=== PATIENT | male | born 1945 | race Two or more races ===

== ENCOUNTER 2019-09-22 07:25 | Inpatient (IN) | payer MEDICARE, BC ==
[~2019-09-22] VITALS: Ht 167.6 cm; Wt 72.1 kg
--- NOTE | 2019-09-22 07:29 | NUR ---
VSS STABLE , AFEBRILE , ATTACHED TO MONITOR , WILL CONTINUE TO MONITOR
--- NOTE | 2019-09-22 07:30 | NUR ---
GABO FROM HOME WITH CC OF altered mental status , BS OF 27 , SEEN AND EVALUATED BY DR CHOUDHARY , WILL CONTINUE TO MONITOR
[2019-09-22] MEDS ORDERED: DEXTROSE 50%-WATER 50 ML DISP.SYRIN ONE (07:34)
--- NOTE | 2019-09-22 07:51 | NUR ---
BS OF 273 POST D50 , PT MORE AWAKE ALERT X2-3 WILL CONTINUE TO MONITOR Addendum: 09/22/19 at 0752 by UCHE 274 MG/DL , NOTIFIED
[2019-09-22 07:55] LABS: BASOPHILS # (AUTO) 0.1 /CMM (0.0-0.2); BASOPHILS % (AUTO) 0.3 % (0.0-2.0); EOSINOPHILS % (AUTO) 0.5 % (0.0-6.0); HEMATOCRIT 32 % (39-51); LYMPHOCYTES # (AUTO) 0.9 /CMM (0.8-4.8); LYMPHOCYTES % (AUTO) 5.9 % (20.0-44.0); MEAN CORPUSCULAR HGB CONC 31 g/dl (31.0-36.0); MEAN CORPUSCULAR VOLUME 90 fL (80-96); MONOCYTES # (AUTO) 0.9 /CMM (0.1-1.30); MONOCYTES % (AUTO) 5.4 % (2.0-12.0); NEUTROPHILS # (AUTO) 13.9 /CMM (1.8-8.9); NEUTROPHILS % (AUTO) 87.9 % (43.0-81.0); PLATELET COUNT (AUTO) 487 /CMM (150-450); WHITE BLOOD COUNT (AUTO) 15.8 K/uL (4.3-11.0)
[2019-09-22] MEDS ORDERED: DEXTROSE 50%-WATER 50 ML DISP.SYRIN IVP ONE (08:00)
[2019-09-22 08:08] LABS: CARBON DIOXIDE 14 mmol/L (21-32); CHLORIDE 96 mmol/L (98-107); CREATININE 6.1 mg/dL (0.6-1.3); GLUCOSE 291 mg/dL (74-106); POTASSIUM 3.5 mmol/L (3.5-5.1); SODIUM SERUM 133 mmol/L (136-145)
[2019-09-22 08:12] LABS: CALCIUM, SERUM 8.4 mg/dL (8.5-10.1); UREA NITROGEN, BLOOD 197 mg/dL (7-18)
--- NOTE | 2019-09-22 08:15 | NUR ---
I AND O DONE ,URINE COLLECTED NOTE WITH 200ML CLEAR YELLOW URINE TRANSFERRED PT TO CT OF THE HEAD , PT STABLE
[2019-09-22 08:20] LABS: APPEARANCE,URINE CLOUDY (CLEAR); BILIRUBIN,URINE Negative (NEGATIVE); BLOOD, URINE Large Ery/uL (NEGATIVE); COLOR,URINE Yellow (YELLOW); KETONES,URINE Negative (NEGATIVE); LEUKOCYTE ESTERASE ,URINE Small (NEGATIVE); NITRITE, URINE Negative (NEGATIVE); PH,URINE 5.5 (5.0-8.0); PROTEIN,URINE 30 mg/dl (NEGATIVE); UGLUCOSE Negative (NEGATIVE); UROBILINOGEN,URINE 0.2 EU/dL (0.2)
[2019-09-22 08:23] LABS: RBC,URINE 15-20 /HPF (0-2)
[2019-09-22 08:25] LABS: BACTERIA,URINE Few /HPF (None Seen); SQUAMOUS EPITHELIAL CELL,UR Moderate /HPF (None Seen); WBC,URINE 30-50 /HPF (0-3)
--- NOTE | 2019-09-22 08:29 | NUR ---
CALLED DR VOSS. SPEAKING TO ED MD
[2019-09-22] MEDS ORDERED: FURO40TA5 PO (08:30)
[2019-09-22] MEDS ORDERED: PRAM1TAB7 PO (08:30)
[2019-09-22] MEDS ORDERED: ROSU20TA32 PO (08:30)
[2019-09-22] MEDS ORDERED: APIX2.5T PO (08:30)
[2019-09-22] MEDS ORDERED: METH1TAB30 PO (08:30)
[2019-09-22] MEDS ORDERED: IV NS 0.9% 1,000 ML IV ONE (08:30)
[2019-09-22] MEDS ORDERED: INSU100I4 SQ (08:30)
[2019-09-22] MEDS ORDERED: CLON1TAB12 MT (08:30)
[2019-09-22] MEDS ORDERED: CEFTRIAXONE 1 G in IV D5W 50 ML IV STA (08:30)
[2019-09-22] MEDS ORDERED: ALLO100T PO (08:30)
[2019-09-22] MEDS ORDERED: INSU100I30 (08:30)
[2019-09-22] MEDS ORDERED: DUTA0.5C16 PO (08:30)
[2019-09-22] MEDS ORDERED: METO-357 PO (08:30)
[2019-09-22] MEDS ORDERED: ERGO500014 PO (08:30)
--- NOTE | 2019-09-22 08:30 | NUR ---
CALLED NURSING [facility] ON RAILS CONSULTANT FOR BED CALLED DR VOSS FOR ADMISSION ,
[2019-09-22] MEDS ORDERED: CEFTRIAXONE 1GM BAG (ER ONLY) 50 ML IV ONE (08:37)
[2019-09-22] MEDS ORDERED: PIPERACILLIN /TAZOBACTAM 2.25 G in IV D5W 50 ML IV SCH (09:30)
[2019-09-22] MEDS ORDERED: IV D5/0.45 NACL 1,000 ML IV PRN (09:30)
[2019-09-22] MEDS ORDERED: ACETAMINOPHEN 325 MG TABLET PO PRN (09:30)
--- NOTE | 2019-09-22 09:31 | NUR ---
CAREGIVER JAY LEFT CONTACT # [phone]
--- NOTE | 2019-09-22 09:36 | NUR ---
RECEIVED A CALL FROM LAB , COVID TEST NEGATIVE CALLED DEANNA TO NOTIFY RESULTS AND F/U BED FOR ADMISSION
--- NOTE | 2019-09-22 09:46 | NUR ---
325-2 MEDINA IS THE RN
--- NOTE | 2019-09-22 10:09 | NUR ---
TRANSFERED PT VIA ACLS PROTOCOL TO ROOM 325-2 , PT STABLE , NO ACUTE EVENTS , REPORT GIVEN TO RN FOR CONTINUITY OF CARE .
--- NOTE | 2019-09-22 10:40 | NUR ---
TELE TRANSFERRED NOTE RECEIVED PATIENT VIA TETERMANUEL FROM ER AND REPORT WAS RECEIVED FROM ZACH BAILEY. PATIENT IS A/OX 2 CONFUSED. WITH NO SIGNS OF DISTRESS IN ROOM AIR. IV # L WRIST #24G. VITALS 125/55 TEMPERATURE 98.7 SPO2 AT 99% HR 106. PATIENT WAS ORIENTED TO HIS ROOM. CALL LIGHT WITHIN REACH. BED IN LOCK POSITION AND LOCKED. SIDE RAILS UP X 2 FOR SAFETY. SEVERAL WOUNDS ON PATIENT SKIN AND PHOTOS WERE TAKEN. WILL CONTINUE TO MONITOR.
--- NOTE | 2019-09-22 11:28 | NUR ---
WOUND CARE CONSULT: PT PRESENTS WITH MULTIPLE WOUNDS PRESENT ON ADMISSION INCLUDING SACRAL NECROTIC WOUND WHICH EXTENDS TO BILATERAL BUTTOCKS, LOWER BUTTOCK WOUNDS AND RT HIP/THIGH WOUND WELL DRY SCABS/SCARRING TO LEFT LOWER EXTREMITY AND NECROTIC WOUND TO RT HEEL. RECOMMENDATIONS MADE FOR SKIN PROTECTION. DISCUSSED WITH NURSING STAFF. SOCIAL SERVICE AND DIETARY CONSULTS IN PLACE. SURGICAL AND DPM CONSULTS CALLED TO DR MACHADO AND DR CORTES. PT IS ON [place] [employer] LOW AIRLOSS BED. IN AGREEMENT WITH PLAN OF CARE.
[2019-09-22] MEDS ORDERED: Z GUARD REMEDY 2 OZ OINT TP PRN (11:30)
[2019-09-22] MEDS ORDERED: WELCHOL PO (12:04)
[2019-09-22] MEDS ORDERED: ESZO3TAB27 PO (12:04)
[2019-09-22] MEDS: BLOOD SUGAR DIAGNOSTIC 1 EACH STRIP IN SCH ×3 (13:08→22:34)
[2019-09-22] MEDS: INSULIN REGULAR, HUMAN 100 UNIT/ML 3 ML VIAL SQ PRN (13:08)
[2019-09-22] MEDS: Z GUARD REMEDY 2 OZ OINT TP SCH (13:13)
[2019-09-22] MEDS: MEROPENEM 500 MG in IV NS 0.9% 50 ML IV SCH (13:21)
[2019-09-22] MEDS: IV 1/2NS 1000 ML 1,000 ML IV PRN (13:25)
[2019-09-22 14:15] LABS: ALBUMIN 2.4 g/dL (3.4-5.0); BILIRUBIN,DIRECT 0.1 mg/dL (0.0-0.2); BILIRUBIN,TOTAL 0.4 mg/dL (0.2-1.0); TOTAL PROTEIN, SERUM 6.5 g/dL (6.4-8.2)
--- NOTE | 2019-09-22 14:40 | NUR ---
SW Consult Note SW consult was requested by MD Granados due to the pt having multiple wounds and coming from home. Pt is a 73 year old male who was admitted to [facility] on 09/22/19 for AMS and Hypoglycemia. Pt appeared to be alert and oriented x4 (time, place, self and situation). Pt appeared to be in a euthymic mood and presented with a calm and content affect. Pt stated, "I am feeling great" when asked about how he was doing. Pt stated, "I just wish I could get this wound cleaned up so that I can go back home." Pt appeared to be disheveled and was dressed in a hospital gown. Pt was able to maintain appropriate eye contact and tone of voice throughout the assessment. Pt states that he is nonambulatory and is wheelchair bound. Pt denied a history of substance abuse. Pt denied suicidal and homicidal ideation as well as auditory and visual hallucinations. SW inquired about any family supports and the pt stated that all of his family lives on the [facility] and therefore he does not feel close to them. Pt states that he has 21/09 caregiver with Jose Mirela ([phone]) as his Wednesday-Wednesday caregiver and Yariel Nieto as his mechanical press operator. SW called Jose ([phone]) and the number is not in use. LESTER did not a phone number for the mechanical press operator and was unable to attain it. LESTER called the number on the pts face sheet for Rosa Isela Castaneda ([phone]), but it went to voicemail and the automated message stated that I called Tonya . LESTER called the number for the pts home ([phone]) and left a message. A woman by the name of Elli called back and stated that the number we have for the pt is wrong because she has had that number for 30 years and she does not know the pt. LESTER was therefore unable to make contact with anyone regarding this pts care. LESTER made an APS report online (Intake ID [id number]) which was successfully submitted on 09/22/2019 at 3:44 PM.
[2019-09-22] MEDS ORDERED: SILVER NITRATE APPLICATOR 1 EA BOX TP STA (15:08)
[2019-09-22] MEDS ORDERED: LIDOCAINE 1%-EPI 1:100,000 20 ML VIAL TP STA (15:08)
[2019-09-22 16:00] VITALS: BP 115/55
[2019-09-22] MEDS: HYDROGEL DRESSING 90 GM TUBE TP SCH (16:06)
[2019-09-22] MEDS: DAKINS QUARTER STRENGTH (0.125%) 480 ML BOTTLE TOP SCH (16:06)
[2019-09-22] MEDS ORDERED: METHENAMINE HIPPURATE PO SCH (17:00)
--- NOTE | 2019-09-22 17:00 | NUR ---
RN NOTES PATIENT ACCUCHECK WAS 63 INSULIN WAS NOT ADMINISTERED AND CRACKERS AND APPLE JUICE WAS GIVEN TO THE PATIENT.
--- NOTE | 2019-09-22 17:30 | NUR ---
RN NOTES PATIENT IS A/OX2, IN BED CALM. WITH NO SIGNS OF DISTRESS IN ROOM AIR. IV L HAND #24G INTACT. PATIENT REMAINED STABLE THROUGHOUT SHIFT. PATIENT KEPT CLEAN AND DRY. ALL NEEDS CARE TREATMENT AND MEDICATIONS ADMINISTERED ANTICIPATED PER ORDER. SAFETY MEASURES ARE IN PLACE BED IS IN LOW POSITION LOCKED AND SIDE RAILS UP X 2 FOR SAFETY. CALL LIGHT IS WITHIN REACH.WILL ENDORSE TO THE NEXT THREE DIMENSIONAL ART INSTRUCTOR.
[2019-09-22] MEDS: APIXABAN 2.5 MG TABLET PO SCH (17:36)
[2019-09-22] MEDS ORDERED: PRAMIPEXOLE DI HCL PO SCH (18:00)
[2019-09-22] MEDS: THERAHONEY GEL 1.5 OZ TUBE TP SCH ×2 (18:55→21:53)
--- NOTE | 2019-09-22 19:15 | NUR ---
MS RN OPENING NOTES PATIENT AWAKE IN BED. A/OX1-2. ON RA. NO S/S OF ACUTE RESPIRATORY DISTRESS; BREATHING IS EVEN AND UNLABORED. NO S/S OF PAIN NOTED. IV PRESENT ON LEFT HAND, SIZE 24, INTACT & PATENT WITH 1/2NS RUNNING AT 100 ML/HR. SAFETY MEASURES IN PLACE AND PATIENT'S NEEDS MET. BED LOCKED, ALARM ON, SIDE RAILS X3, CALL LIGHT WITHIN REACH. WILL CONTINUE TO MONITOR.
[2019-09-22 20:00] VITALS: BP 145/86
--- NOTE | 2019-09-22 21:45 | NUR ---
MS RN NOTES RECEIVED ORDER FROM PIPEFITTER HELPER FACTORY MAINTENANCE TECHNICIAN. PER LAKEISHA, OK TO STRAIGHT CATH PATIENT Q6HR.
[2019-09-22] MEDS: DEXTROSE 50%-WATER 50 ML DISP.SYRIN IV PRN ×2 (22:30→23:40)
--- NOTE | 2019-09-22 22:58 | NUR ---
MS RN NOTES PATIENT'S BLOOD SUGAR 47. PATIENT ALERT, DENIES DIZZINESS OR SOB. PRN IV DEXTROSE 50% GIVEN. RECHECKED BLOOD SUGAR, 158. WILL CONTINUE TO MONITOR.
[2019-09-23] MEDS: IV 1/2NS 1000 ML 1,000 ML IV PRN (05:52)
[2019-09-23] MEDS: BLOOD SUGAR DIAGNOSTIC 1 EACH STRIP IN SCH ×4 (07:28→21:47)
--- NOTE | 2019-09-23 07:30 | NUR ---
MS/RN OPENING NOTES Patient resting in bed, A&O x 2. No complaints of pain and discomfort at this time. Breathing even and non-labored on RA, no SOB noted. No cardiac distress noted. IV access noted on L Hand #24, patent and intact, running D5 1/2 NS at 100 cc/hr. Sensation from all peripheral extremities noted. Fall precautions maintained. Will continue with current medical management.
[2019-09-23 07:32] LABS: BASOPHILS % (AUTO) 0.2 % (0.0-2.0); EOSINOPHILS % (AUTO) 2.4 % (0.0-6.0); HEMATOCRIT 31 % (39-51); HEMOGLOBIN 9.7 g/dL (13.5-17.5); LYMPHOCYTES # (AUTO) 0.7 /CMM (0.8-4.8); LYMPHOCYTES % (AUTO) 5.5 % (20.0-44.0); MEAN CORPUSCULAR HGB CONC 32 g/dl (31.0-36.0); MEAN CORPUSCULAR VOLUME 89 fL (80-96); MONOCYTES # (AUTO) 0.7 /CMM (0.1-1.30); MONOCYTES % (AUTO) 5.4 % (2.0-12.0); NEUTROPHILS # (AUTO) 11.1 /CMM (1.8-8.9); NEUTROPHILS % (AUTO) 86.5 % (43.0-81.0); PLATELET COUNT (AUTO) 432 /CMM (150-450); RED BLOOD CELL COUNT(AUTO) 3.47 MIL/uL (4.5-6.0); WHITE BLOOD COUNT (AUTO) 12.8 K/uL (4.3-11.0)
--- NOTE | 2019-09-23 07:40 | NUR ---
MS RN CLOSING NOTES PATIENT SLEEPING IN BED. A/OX1-2. ON RA. NO S/S OF ACUTE RESPIRATORY DISTRESS; BREATHING IS EVEN AND UNLABORED. NO S/S OF PAIN NOTED. IV PRESENT ON LEFT HAND, SIZE 24, INTACT & PATENT; RECEIVED ORDERS FROM MOTORCYCLE REPAIRER E BUSINESS PROJECT MANAGER, CANDACE GOMEZ, FOR D5 1/2 NS AT 100ML/HR; ENDORSE TO DAY SHIFT RN. SAFETY MEASURES IN PLACE AND PATIENT'S NEEDS MET. BED LOCKED, ALARM ON, SIDE RAILS X3, CALL LIGHT WITHIN REACH. PLAN OF CARE ENDORSED TO DAY SHIFT RN.
[2019-09-23 08:00] VITALS: BP 115/53
[2019-09-23] MEDS: IV D5/0.45 NACL 1,000 ML IV PRN (08:13)
[2019-09-23] MEDS: ALLOPURINOL 100 MG TABLET PO SCH (08:57)
[2019-09-23] MEDS: ATORVASTATIN 40 MG TABLET PO SCH (08:57)
[2019-09-23 08:58] LABS: CALCIUM, SERUM 8.8 mg/dL (8.5-10.1); CHLORIDE 100 mmol/L (98-107); CREATININE 6.1 mg/dL (0.6-1.3); GLUCOSE 73 mg/dL (74-106); POTASSIUM 2.9 mmol/L (3.5-5.1); SODIUM SERUM 134 mmol/L (136-145)
[2019-09-23] MEDS: METOPROLOL SUCCINATE 50 MG TAB.SR.24H PO SCH (08:58)
[2019-09-23 08:59] LABS: THYROID STIMULATING HORMONE 2.915 uIU/mL (0.358-3.74)
[2019-09-23] MEDS: APIXABAN 2.5 MG TABLET PO SCH ×2 (08:59→16:52)
[2019-09-23] MEDS ORDERED: METOPROLOL SUCCINATE 50 MG TAB.SR.24H PO SCH (09:00)
[2019-09-23] MEDS: DUTASTERIDE (0.5 MG) 0.5 MG CAPSULE PO SCH (09:00)
--- NOTE | 2019-09-23 09:45 | NUR ---
MS/RN NOTES Straight catheter output of 300 cc noted, urine appears venus and clear. Will continue to monitor for any changes/changes in condition.
[2019-09-23 10:00] LABS: UREA NITROGEN, BLOOD 178 mg/dL (7-18)
--- NOTE | 2019-09-23 10:00 | NUR ---
MS/RN NOTES Critical lab values reported by lab: CO2 - 9, BUN - 178. Reported to Dr. Restrepo and Alek Carr NP, whose at bedside. Dr. Restrepo ordered sodium citrate and citric acid. Rendered order.
[2019-09-23 10:02] LABS: CARBON DIOXIDE 9 mmol/L (21-32)
[2019-09-23] MEDS: DAKINS QUARTER STRENGTH (0.125%) 480 ML BOTTLE TOP SCH (10:17)
[2019-09-23] MEDS: HYDROGEL DRESSING 90 GM TUBE TP SCH (10:18)
[2019-09-23] MEDS: THERAHONEY GEL 1.5 OZ TUBE TP SCH ×2 (10:18→21:39)
[2019-09-23] MEDS: Z GUARD REMEDY 2 OZ OINT TP SCH (10:19)
[2019-09-23] MEDS: CITRIC ACID/SODIUM CITRATE (BICITRA)15 ML UDC PO SCH ×4 (11:14→21:39)
[2019-09-23] MEDS: MEROPENEM 500 MG in IV NS 0.9% 50 ML IV SCH (13:15)
--- NOTE | 2019-09-23 14:00 | NUR ---
MS/RN NOTES Read back and rendered order from Alek Carr: Potassium PO 20mEq x 1, for low potassium level of 2.9.
[2019-09-23] MEDS ORDERED: POTASSIUM CHLORIDE 20 MEQ TAB.PRT.SR PO ONE (14:30)
--- NOTE | 2019-09-23 15:45 | NUR ---
MS/RN NOTES Straight cath output noted at 600 cc, clear and venus urine noted. Will continue to monitor for any changes.
[2019-09-23 16:00] VITALS: BP 105/52
[2019-09-23] MEDS: INSULIN REGULAR, HUMAN 100 UNIT/ML 3 ML VIAL SQ PRN ×2 (16:54→21:50)
--- NOTE | 2019-09-23 18:30 | NUR ---
MS/RN CLOSING NOTES Patient resting in bed, A&O x 2. Breathing even and non-labored on RA, no SOB noted. No cardiac distress noted. Denies any pain and discomfort at this time. IV access noted on L Hand #24, patent and intact, running D5 1/2 NS at 100 cc/hr. Sensation from all peripheral extremities noted. Patient's VS remained stable. Fall precautions maintained. Will endorse to shift stacker nurse.
--- NOTE | 2019-09-23 19:30 | NUR ---
MS/RN OPENING NOTES RECEIVED PATIENT RESTING IN BED WATCHING TV. PATIENT IS ALERT AND ORIENTED X 3. PATIENT IS ON ROOM AIR TOLERATING WELL. NO SIGNS OF SOB OR RESPIRATORY DISTRESS NOTED. PATIENT STATES NO PAIN AT THE MOMENT. PATIENT HAS IV ON LEFT HAND #24 G RUNNING 1/2 NS AT 100 ML/HR. SAFETY MEASURES ARE IN PLACE, BED IS PLACED IN THE LOWEST POSITION, LOCKED, ALARM ON WITH CALL LIGHT WITHIN REACH. WILL CONTINUE TO MONITOR PATIENT THROUGH OUT SHIFT.
[2019-09-23 20:00] VITALS: BP 107/52
[2019-09-24] MEDS: IV 1/2NS 1000 ML 1,000 ML IV PRN ×2 (04:57→19:02)
[2019-09-24] MEDS: BLOOD SUGAR DIAGNOSTIC 1 EACH STRIP IN SCH ×4 (06:46→21:26)
[2019-09-24] MEDS: INSULIN REGULAR, HUMAN 100 UNIT/ML 3 ML VIAL SQ PRN ×4 (06:48→21:29)
--- NOTE | 2019-09-24 06:55 | NUR ---
MS/RN CLOSING NOTES PATIENT RESTING IN BED. PATIENT IS ALERT AND ORIENTED X 3. PATIENT IS ON ROOM AIR TOLERATING WELL. NO SIGNS OF SOB OR RESPIRATORY DISTRESS NOTED. PATIENT STATES NO PAIN AT THE MOMENT. PATIENT HAS IV ON LEFT HAND #24 G RUNNING 1/2 NS AT 100 ML/HR. PATIENTS WOUNDS HAVE BEEN CLEANED AND ALL DRESSINGS HAVE BEEN CHANGED. STRAIGHT CATH OUTPUT TOTAL X2 IS 1900 MLS. ALL PATIENTS NEEDS HAVE BEEN MET DURING SHIFT. SAFETY MEASURES ARE IN PLACE, BED IS PLACED IN THE LOWEST POSITION, LOCKED, ALARM ON WITH CALL LIGHT WITHIN REACH. WILL ENDORSE CARE TO DAY SHIFT.
--- NOTE | 2019-09-24 07:32 | NUR ---
MS/RN OPENING NOTES Patient resting in bed, A&O x 2. Denies any pain or discomfort at this time. Breathing even and non-labored on RA, no SOB noted. No cardiac distress noted. IV access noted on L Hand #24, patent and intact, running D5 1/2 NS at 100 cc/hr. No infection/infiltration/bleeding noted on site. Sensation from all peripheral extremities noted. Fall precautions maintained. Will continue to monitor for any changes in condition. Addendum: 09/24/19 at 1859 by FORD CASTRO RN CORRECTION: RUNNING 1/2 NS AT 100 CC/HR
[2019-09-24 07:43] LABS: BASOPHILS % (AUTO) 0.2 % (0.0-2.0); EOSINOPHILS % (AUTO) 2.2 % (0.0-6.0); HEMATOCRIT 30 % (39-51); HEMOGLOBIN 9.3 g/dL (13.5-17.5); LYMPHOCYTES # (AUTO) 0.8 /CMM (0.8-4.8); LYMPHOCYTES % (AUTO) 5.9 % (20.0-44.0); MEAN CORPUSCULAR HGB CONC 32 g/dl (31.0-36.0); MEAN CORPUSCULAR VOLUME 88 fL (80-96); MONOCYTES # (AUTO) 0.6 /CMM (0.1-1.30); MONOCYTES % (AUTO) 4.6 % (2.0-12.0); NEUTROPHILS # (AUTO) 11.4 /CMM (1.8-8.9); NEUTROPHILS % (AUTO) 87.1 % (43.0-81.0); PLATELET COUNT (AUTO) 404 /CMM (150-450); RED BLOOD CELL COUNT(AUTO) 3.35 MIL/uL (4.5-6.0); WHITE BLOOD COUNT (AUTO) 13.1 K/uL (4.3-11.0)
[2019-09-24 07:44] LABS: CALCIUM, SERUM 8.1 mg/dL (8.5-10.1); CARBON DIOXIDE 12 mmol/L (21-32); CHLORIDE 102 mmol/L (98-107); CREATININE 5.8 mg/dL (0.6-1.3); GLUCOSE 158 mg/dL (74-106); POTASSIUM 2.9 mmol/L (3.5-5.1); SODIUM SERUM 137 mmol/L (136-145)
[2019-09-24 07:47] LABS: UREA NITROGEN, BLOOD 166 mg/dL (7-18)
[2019-09-24 08:00] VITALS: BP 90/54
[2019-09-24] MEDS: DUTASTERIDE (0.5 MG) 0.5 MG CAPSULE PO SCH (08:48)
[2019-09-24] MEDS: ALLOPURINOL 100 MG TABLET PO SCH (08:49)
[2019-09-24] MEDS: CITRIC ACID/SODIUM CITRATE (BICITRA)15 ML UDC PO SCH ×4 (08:49→21:21)
[2019-09-24] MEDS: METOPROLOL SUCCINATE 50 MG TAB.SR.24H PO SCH (08:49)
[2019-09-24] MEDS: ATORVASTATIN 40 MG TABLET PO SCH (08:49)
[2019-09-24] MEDS: APIXABAN 2.5 MG TABLET PO SCH ×2 (08:50→17:28)
[2019-09-24] MEDS: THERAHONEY GEL 1.5 OZ TUBE TP SCH ×2 (08:56→21:21)
[2019-09-24] MEDS: DAKINS QUARTER STRENGTH (0.125%) 480 ML BOTTLE TOP SCH (08:56)
[2019-09-24] MEDS: HYDROGEL DRESSING 90 GM TUBE TP SCH (08:57)
[2019-09-24] MEDS: Z GUARD REMEDY 2 OZ OINT TP SCH (08:57)
--- NOTE | 2019-09-24 10:30 | NUR ---
MS/RN NOTES Patient picked up for CT abdomen. Left unit safely.
--- NOTE | 2019-09-24 11:00 | NUR ---
MS/RN NOTES Patient back from CT abdomen, will continue to monitor patient for any changes in condition.
--- NOTE | 2019-09-24 12:00 | NUR ---
MS/RN NOTES Reported BUN at [address] Talat Gusman, no new orders noted.
[2019-09-24] MEDS ORDERED: POTASSIUM CHLORIDE 10 MEQ TABLET.SA PO ONE (12:30)
[2019-09-24] MEDS: MEROPENEM 500 MG in IV NS 0.9% 50 ML IV SCH ×2 (12:37→23:37)
[2019-09-24 16:00] VITALS: BP 117/61
--- NOTE | 2019-09-24 16:00 | NUR ---
MS/RN NOTES Notified case management of patient's request to get transferred to [facility] because his pcp and neurologist know his case really well. Per caregiver, patient's PCP and neurologist agreed to transfer patient to [facility]. Waiting for outpatient case manager's plan of action.
--- NOTE | 2019-09-24 19:20 | NUR ---
MS/RN CLOSING NOTES Patient resting in bed, A&O x 2. No complaints of any pain or discomfort at this time. Breathing even and non-labored on RA. No respiratory or cardiac distress noted. IV access noted on L Hand #24, patent and intact, running 1/2 NS at 100 cc/hr. No infection/infiltration/bleeding noted on site. Wound care done, dressings are clean, dry, and intact on sacral area and left buttocks. Sensation from all peripheral extremities noted. Fall precautions maintained. Will endorse to overnight cashier nurse.
--- NOTE | 2019-09-24 19:30 | NUR ---
MS/RN OPENING NOTES RECEIVED PATIENT IN BED AWAKE. PATIENT IS ALERT AND ORIENTED X 3. PATIENT STATES NO PAIN AT THIS TIME. NO SOB OR RESPIRATORY DISTRESS NOTED. PATIENT IS IN A COMFORTABLE POSITION. PATIENT HAS IV LINE LEFT HAND #24G IN PLACE RUNNING NS AT 100ML/HR. SAFETY MEASURES ARE IN PLACE WILL BED IS LOCKED AND PLACED IN THE LOWEST POSITION WITH ALARM ON SIDE RAILS UP X 2. CALL LIGHT IS WITHIN REACH. WILL CONTINUE TO MONITOR PATIENT.
[2019-09-24 20:00] VITALS: BP 105/64
[2019-09-25] MEDS: BLOOD SUGAR DIAGNOSTIC 1 EACH STRIP IN SCH ×4 (06:14→21:15)
--- NOTE | 2019-09-25 06:55 | NUR ---
MS/RN CLOSING NOTES PATIENT IN BED AWAKE. PATIENT IS ALERT AND ORIENTED X 3. PATIENT STATES NO PAIN AT THIS TIME. NO SOB OR RESPIRATORY DISTRESS NOTED. PATIENT IS IN A COMFORTABLE POSITION. PATIENT HAS IV LINE RIGHT HAND #20G IN PLACE RUNNING NS AT 100ML/HR. ALL WOUND CARE HAS BEEN DONE DURING SHIFT. ALL OF THE PATIENTS NEEDS HAVE BEEN MET. PATIENT RECEIVES STRAIGHT CATH EVERY 6 HOURS OUTPUT 1700ML. SAFETY MEASURES ARE IN PLACE WILL BED IS LOCKED AND PLACED IN THE LOWEST POSITION WITH ALARM ON SIDE RAILS UP X 2. CALL LIGHT IS WITHIN REACH. WILL ENDORSE CARE TO DAY SHIFT.
--- NOTE | 2019-09-25 07:30 | NUR ---
RN OPEN NOTES PATIENT IS A/O X 2-3. PATIENT IS CALM AND COOPERATIVE WITH NO SIGNS OF DISTRESS IN ROOM AIR. IN R FA #20G INTACT. BED IS IN LOW POSITION AND LOCKED WITH SIDE RAILS UP X 2 FOR SAFETY. CALL LIGHT WITHIN REACH. WILL CONTINUE TO MONITOR.
[2019-09-25 07:50] LABS: BASOPHILS % (AUTO) 0.1 % (0.0-2.0); EOSINOPHILS % (AUTO) 1.9 % (0.0-6.0); HEMATOCRIT 28 % (39-51); HEMOGLOBIN 8.9 g/dL (13.5-17.5); LYMPHOCYTES # (AUTO) 0.7 /CMM (0.8-4.8); LYMPHOCYTES % (AUTO) 5.4 % (20.0-44.0); MEAN CORPUSCULAR HGB CONC 32 g/dl (31.0-36.0); MEAN CORPUSCULAR VOLUME 90 fL (80-96); MONOCYTES # (AUTO) 0.5 /CMM (0.1-1.30); MONOCYTES % (AUTO) 4.4 % (2.0-12.0); NEUTROPHILS # (AUTO) 10.8 /CMM (1.8-8.9); NEUTROPHILS % (AUTO) 88.2 % (43.0-81.0); PLATELET COUNT (AUTO) 338 /CMM (150-450); RED BLOOD CELL COUNT(AUTO) 3.13 MIL/uL (4.5-6.0); WHITE BLOOD COUNT (AUTO) 12.3 K/uL (4.3-11.0)
[2019-09-25 08:00] VITALS: BP 90/52
[2019-09-25 08:06] LABS: CALCIUM, SERUM 8.1 mg/dL (8.5-10.1); CARBON DIOXIDE 11 mmol/L (21-32); CHLORIDE 100 mmol/L (98-107); CREATININE 5.2 mg/dL (0.6-1.3); GLUCOSE 174 mg/dL (74-106); MAGNESIUM 1.9 mg/dL (1.8-2.4); SODIUM SERUM 133 mmol/L (136-145)
[2019-09-25 08:17] LABS: POTASSIUM 2.5 mmol/L (3.5-5.1); UREA NITROGEN, BLOOD 143 mg/dL (7-18)
[2019-09-25 08:18] LABS: PHOSPHORUS 8.4 mg/dL (2.5-4.9)
[2019-09-25] MEDS: ALLOPURINOL 100 MG TABLET PO SCH (08:39)
[2019-09-25] MEDS: ATORVASTATIN 40 MG TABLET PO SCH (08:39)
[2019-09-25] MEDS: CITRIC ACID/SODIUM CITRATE (BICITRA)15 ML UDC PO SCH ×4 (08:39→21:16)
[2019-09-25] MEDS: APIXABAN 2.5 MG TABLET PO SCH ×2 (08:40→16:17)
[2019-09-25] MEDS: METOPROLOL SUCCINATE 50 MG TAB.SR.24H PO SCH (08:41)
[2019-09-25] MEDS: DUTASTERIDE (0.5 MG) 0.5 MG CAPSULE PO SCH (08:45)
[2019-09-25] MEDS: DAKINS QUARTER STRENGTH (0.125%) 480 ML BOTTLE TOP SCH (08:54)
[2019-09-25] MEDS: HYDROGEL DRESSING 90 GM TUBE TP SCH (08:54)
[2019-09-25] MEDS: Z GUARD REMEDY 2 OZ OINT TP SCH (08:55)
[2019-09-25] MEDS: THERAHONEY GEL 1.5 OZ TUBE TP SCH ×2 (08:57→21:21)
--- NOTE | 2019-09-25 10:00 | NUR ---
RN NOTES PATIENT POTASSIUM 2.5. CALLED DR. CHENG TO INFORM ABOUT THE POTASSIUM LEVEL. DR. CHENG ORDERED KDURR 40MEQ PO ONCE. REPEATED ORDER BACK AND CARRIED OUT.
[2019-09-25] MEDS ORDERED: POTASSIUM CHLORIDE 20 MEQ TAB.PRT.SR PO ONE (10:08)
[2019-09-25] MEDS: MEROPENEM 500 MG in IV NS 0.9% 50 ML IV SCH ×2 (12:34→23:35)
[2019-09-25] MEDS: INSULIN REGULAR, HUMAN 100 UNIT/ML 3 ML VIAL SQ PRN ×3 (12:37→21:20)
[2019-09-25] MEDS: IV D5/0.45 NACL 1,000 ML IV PRN (12:46)
[2019-09-25] MEDS ORDERED: LIDOCAINE 1%-EPI 1:100,000 20 ML VIAL TP ONE (13:00)
[2019-09-25 16:00] VITALS: BP 105/55
--- NOTE | 2019-09-25 19:35 | NUR ---
RN CLOSING NOTES PATIENT IS A/O X 2-3. PATIENT IS CALM AND COOPERATIVE WITH NO SIGNS OF DISTRESS IN ROOM AIR. IN R FA #20G SL INTACT. PILLOW UNDER RIGHT LEG FOR COMFORT. PATIENT REMAINED STABLE THROUGH OUT SHIFT. PATIENT KEPT CLEAN AND DRY. ALL NEEDS, CARE, TREATMENT AND MEDICATIONS ADMINISTERED ANTICIPATED PER ORDER. BED IS IN LOW POSITION AND LOCKED WITH SIDE RAILS UP X 2 FOR SAFETY. CALL LIGHT WITHIN REACH. WILL ENDORSE TO THE NEXT NURSE SHIFT.
--- NOTE | 2019-09-25 19:40 | NUR ---
MS RN OPEN NOTES PATIENT IS CURRENTLY SLEEPING. ON RA, NO SOB/ ACUTE RESPIRATORY DISTRESS NOTED. APPEARS COMFORTABLE/ NO COMPLAINTS OF PAIN AT THE MOMENT. BED IS IN LOWEST LOCKED POSITION WITH SIDE RAILS UP X3, SEMI FOWLERS. CALL LIGHT IS WITHIN REACH. WILL CONTINUE TO MONITOR.
--- NOTE | 2019-09-26 01:43 | NUR ---
MS RN NOTES PATIENT'S BP IS 98/38. CHECKED VITALS ON BOTH ARMS. NOTIFIED INDUSTRIAL SPRAY PAINTER, IN WHICH SHE STATED TO ORDER 500ML NS BOLUS. ORDER NOTED AND CARRIED OUT.
[2019-09-26] MEDS ORDERED: IV NS 0.9% 500 ML IV ONE (01:50)
[2019-09-26] MEDS: IV D5/0.45 NACL 1,000 ML IV PRN ×2 (03:48→16:48)
--- NOTE | 2019-09-26 06:25 | NUR ---
MS RN CLOSE NOTES PATIENT IS LAYING IN BED. A/O X3. ON RA, NO SOB/ ACUTE RESPIRATORY DISTRESS NOTED. IV IN R FOREARM #20G IS PATENT AND INTACT RUNNING D5 1/2 NS @ 100 MLS/HR. APPEARS COMFORTABLE/ NO COMPLAINTS OF PAIN AT THE MOMENT. ALL DUE MEDICATIONS GIVEN. WOUND CARE DONE. STRAIGHT CATH PERFORMED Q6HRS, 1700 ML OUTPUT. BED IS IN LOWEST LOCKED POSITION WITH SIDE RAILS UP X3, SEMI FOWLERS. CALL LIGHT IS WITHIN REACH. WILL ENDORSE TO AM NURSE.
[2019-09-26] MEDS: BLOOD SUGAR DIAGNOSTIC 1 EACH STRIP IN SCH ×4 (06:30→21:06)
[2019-09-26] MEDS: INSULIN REGULAR, HUMAN 100 UNIT/ML 3 ML VIAL SQ PRN ×4 (06:30→21:14)
--- NOTE | 2019-09-26 07:30 | NUR ---
RN OPEN NOTES PATIENT IS A/O X 2-3. AWAKE WITH NO SIGNS OF DISTRESS IN ROOM AIR. IN R FA #20G INTACT RUNNING D5 1/2 NS AT 100 MLS/HR. PILLOW UNDER LEGS FOR SKIN PROTECTION AND COMFORT. BED IS IN LOW POSITION AND LOCKED WITH SIDE RAILS UP X 2 FOR SAFETY. CALL LIGHT WITHIN REACH. WILL CONTINUE TO MONITOR.
[2019-09-26 08:00] VITALS: BP_SYST 117; BP_SYST 92; BP_DIAS 40; BP_DIAS 63
--- NOTE | 2019-09-26 08:00 | NUR ---
RN NOTES PATIENTS 0800 BP 92/40. WILL GIVE ORAL FLUIDS, COFFEE. LEGS UP ELEVATED WITH PILLOW UNDER LEGS WILL CONTINUE TO MONITOR.
[2019-09-26 08:16] LABS: BASOPHILS % (AUTO) 0.3 % (0.0-2.0); EOSINOPHILS % (AUTO) 2.7 % (0.0-6.0); HEMATOCRIT 26 % (39-51); HEMOGLOBIN 8.1 g/dL (13.5-17.5); LYMPHOCYTES # (AUTO) 0.7 /CMM (0.8-4.8); LYMPHOCYTES % (AUTO) 7.1 % (20.0-44.0); MEAN CORPUSCULAR HGB CONC 32 g/dl (31.0-36.0); MEAN CORPUSCULAR VOLUME 88 fL (80-96); MONOCYTES # (AUTO) 0.4 /CMM (0.1-1.30); MONOCYTES % (AUTO) 4.2 % (2.0-12.0); NEUTROPHILS # (AUTO) 8.8 /CMM (1.8-8.9); NEUTROPHILS % (AUTO) 85.7 % (43.0-81.0); PLATELET COUNT (AUTO) 297 /CMM (150-450); RED BLOOD CELL COUNT(AUTO) 2.89 MIL/uL (4.5-6.0); WHITE BLOOD COUNT (AUTO) 10.3 K/uL (4.3-11.0)
[2019-09-26 08:17] LABS: CALCIUM, SERUM 7.7 mg/dL (8.5-10.1); CARBON DIOXIDE 13 mmol/L (21-32); CHLORIDE 106 mmol/L (98-107); CREATININE 4.5 mg/dL (0.6-1.3); GLUCOSE 159 mg/dL (74-106); SODIUM SERUM 138 mmol/L (136-145)
[2019-09-26 08:20] LABS: POTASSIUM 2.4 mmol/L (3.5-5.1); UREA NITROGEN, BLOOD 117 mg/dL (7-18)
--- NOTE | 2019-09-26 08:20 | NUR ---
RN NOTES RECEIVED CRITICAL VALUES FROM LAB BY PHONE POTASSIUM 2.4, MAG 1.6, BUN 117. VALUES WERE READ BACK AND CARRIED OUT.
[2019-09-26 08:21] LABS: MAGNESIUM 1.6 mg/dL (1.8-2.4); PHOSPHORUS 6.3 mg/dL (2.5-4.9)
--- NOTE | 2019-09-26 08:26 | NUR ---
RN NOTES CALLED DR. APOLINAR RIVERA TO INFORM ABOUT THE CRITICAL VALUES OF POTASSIUM, MAG, AND BUN. NO ANSWER STILL WAITING ON AN ORDER. CREATININE 4.5 PHARMACY CANNOT REPLACE MAG AND POTASSIUM D/T CREATINE BEING 4.5.
--- NOTE | 2019-09-26 08:30 | NUR ---
RN NOTES PATIENT BP 104/66 H 120 WILL CONTINUE TO MONITOR.
[2019-09-26] MEDS: DUTASTERIDE (0.5 MG) 0.5 MG CAPSULE PO SCH (08:54)
[2019-09-26] MEDS: ALLOPURINOL 100 MG TABLET PO SCH (08:55)
[2019-09-26] MEDS: CITRIC ACID/SODIUM CITRATE (BICITRA)15 ML UDC PO SCH ×4 (08:55→20:45)
[2019-09-26] MEDS: ATORVASTATIN 40 MG TABLET PO SCH (08:55)
[2019-09-26] MEDS: HYDROGEL DRESSING 90 GM TUBE TP SCH (08:56)
[2019-09-26] MEDS: DAKINS QUARTER STRENGTH (0.125%) 480 ML BOTTLE TOP SCH (08:57)
[2019-09-26] MEDS: THERAHONEY GEL 1.5 OZ TUBE TP SCH ×2 (08:57→20:45)
[2019-09-26] MEDS: Z GUARD REMEDY 2 OZ OINT TP SCH (08:58)
[2019-09-26] MEDS: METOPROLOL SUCCINATE 50 MG TAB.SR.24H PO SCH (09:00)
[2019-09-26] MEDS: APIXABAN 2.5 MG TABLET PO SCH ×2 (09:00→16:35)
--- NOTE | 2019-09-26 11:48 | NUR ---
RN NOTES DR. APOLINAR RIVERA IS AWARE OF THE CRITICAL VALUES HE SAID HES GOING TO TAKE A LOOK AND WILL CALL ME FOR THE NEW ORDERS. WAITING FOR NEW ORDERS AT THIS TIME.
[2019-09-26] MEDS: MEROPENEM 500 MG in IV NS 0.9% 50 ML IV SCH (11:56)
[2019-09-26] MEDS ORDERED: POTASSIUM CHLORIDE 20 MEQ TAB.PRT.SR PO ONE (12:00)
[2019-09-26] MEDS: POTASSIUM CHLORIDE 20 MEQ TAB.PRT.SR PO SCH ×2 (12:54→16:33)
[2019-09-26 16:00] VITALS: BP 80/40
[2019-09-26 16:10] VITALS: BP 90/51
--- NOTE | 2019-09-26 16:10 | NUR ---
RN NOTES RE TOOK BLOOD PRESSURE RIGHT ARM 90/51. WILL CONTINUE TO MONITOR.
--- NOTE | 2019-09-26 19:20 | NUR ---
RN CLOSED NOTES PATIENT IS A/O X 2-3. AWAKE WITH NO SIGNS OF DISTRESS IN ROOM AIR. IN R FA #20G INTACT RUNNING D5 1/2 NS AT 100 MLS/HR. PILLOW UNDER LEGS FOR SKIN PROTECTION AND COMFORT. PATIENT KEPT CLEAN, DRY STABLE. ALL NEEDS, CARE, TREATMENT AND MEDICATIONS ADMINISTERED ANTICIPATED PER ORDER.BED IS IN LOW POSITION AND LOCKED WITH SIDE RAILS UP X 2 FOR SAFETY. CALL LIGHT WITHIN REACH. WILL ENDORSE TO THE STAFF CYTOTECHNOLOGIST NURSE.
--- NOTE | 2019-09-26 19:26 | NUR ---
MS/RRN OPENING NOTES RECEIVED PATIENT IN BED, AWAKE, ABLE TO VERBALIZE NEEDS, ON ROOM AIR, IN CONTRACTED POSITION BUT ABLE TO KEEP COMFORTABLE WITH SOME OFF LOAD AND REPOSITION, PATIENT CALL LIGHTS WITHIN REACH, PATIENT ALEERT X2, OFFERED AND PROVIDED FLUIDS, USES STRAIGHT CATHETER PER MD ORDER DUE TO BLADDER RETENTION, WITH WOUND IN SACRAL JUST HAD DEBRIDEMENT, WITH RIGHT HEEL ULCER , OFF LOAD, CARB CONTROL DIET, ON IV D5 1/2 NS AT 100 ML/HR, RIGHT FOREARM PATENT, MONITORING FOR LOW BP ABD BLOOD SUGAR , POTASSIUM WAS REPLACED AND MAGNESIUM WAS LOW AND MD AWARE WITH NNO. ASPIRATION PRECAUTION, MONITOIRNG, BED LOCKED, CALL LIGHTS WITHIN REACH, RIGHT FOREARM PATENT.
[2019-09-26 20:00] VITALS: BP 91/39
[2019-09-26] MEDS: LEVOFLOXACIN (250MG) 250 MG TABLET PO SCH (21:16)
--- NOTE | 2019-09-27 01:03 | NUR ---
in and out straight catheter emptied 900 ml of tea colored urine.patient tolerated well.
[2019-09-27] MEDS: IV D5/0.45 NACL 1,000 ML IV PRN ×2 (02:40→13:02)
[2019-09-27] MEDS: BLOOD SUGAR DIAGNOSTIC 1 EACH STRIP IN SCH ×4 (06:04→21:40)
--- NOTE | 2019-09-27 06:22 | NUR ---
324-1 TELE/RN NOTES PATIENT ALERT X1-2, ON OXYGEN VIA NC AT 3 LITER, ATTENDED ALL NEEDS, S/P BLOOD TRANSFUSION, VITAL SIGNS WITHIN NORMAL PARAMETERS, KEPT SKIN INTACT AND DRY, REPOSIITONED, ON NPO STATUS, FAMILY INVOLVED. SAFETY PRECAUTIONS FOLLOWED AND PRACTICED BED LOCKED, CALL LIGHTS WITHIN REACH. MONITORED FOR ANY CHANGES. WILL ENDORSE TO AM RN FOR SELVIN. Addendum: 09/27/19 at 0624 by MACIE KLINE RN PLS DISREGARD
--- NOTE | 2019-09-27 06:24 | NUR ---
325-2 MS/RN NOTES PATIENT ABLE TO SLEEP DURING THE NIGHT,. ALERT X3, ABLE TO VERBALIZE NEEDS, RESPIRATIONS EVEN AND UNLABORED ON OXYGEN VIA NC AT 2 LITER, KEPT COMFORTABLE. REPOSITION FOR COMFORT, NEEDED WOUN CARE PROVIDED, BED LOCKEC, CALL LIGHTS WITHIN REACH. WILL MONITOR. WILL ENDORSE TO AM RN FOR SELVIN.
--- NOTE | 2019-09-27 07:10 | NUR ---
MS RN OPENING NOTES RECEIVED PATIENT IN BED, AWAKE, AOX2-3, PT ABLE TO VERBALIZE NEEDS, NO SOB NOTED, NO S/S OF ANY ACUTE DISTRESS NOTED, NO C/O PAIN AT THIS TIME. RESPIRATION EVEN AND UNLABORED. IV ACCESS ON RAC G#22, INTACT & PATENT. STRAIGHT CATHETER PER MD ORDER DUE TO BLADDER RETENTION, SACRAL WOUND NOTED S/P DEBRIDEMENT, WITH RIGHT HEEL ULCER , MONITOR PT FOR LOW BP. SAFETY PRECAUTIONS IN PLACE. BED IN LOWEST LOCKED POSITION, HOB ELEVATED, SIDE RAILS X2, CALL LIGHT WITHIN REACH. WILL CONTINUE TO MONITOR.
[2019-09-27 07:46] LABS: CALCIUM, SERUM 7.5 mg/dL (8.5-10.1); CARBON DIOXIDE 13 mmol/L (21-32); CHLORIDE 107 mmol/L (98-107); CREATININE 3.8 mg/dL (0.6-1.3); GLUCOSE 128 mg/dL (74-106); SODIUM SERUM 138 mmol/L (136-145)
[2019-09-27 07:50] LABS: POTASSIUM 2.7 mmol/L (3.5-5.1); UREA NITROGEN, BLOOD 96 mg/dL (7-18)
--- NOTE | 2019-09-27 07:50 | NUR ---
PT LAB REPORT OF POTASSIUM 2.7, REPORTED AT THIS TIME BY SCOUT GROOVER OPERATOR. REPORT READ BACK. DOCTOR DAILY MADE AWARE. AWAITING ORDERS, WILL CONTINUE TO MONITOR
[2019-09-27 08:00] VITALS: BP 133/63
[2019-09-27] MEDS: METOPROLOL SUCCINATE 50 MG TAB.SR.24H PO SCH (09:00)
[2019-09-27] MEDS: DAKINS QUARTER STRENGTH (0.125%) 480 ML BOTTLE TOP SCH (09:32)
[2019-09-27] MEDS: ALLOPURINOL 100 MG TABLET PO SCH (09:36)
[2019-09-27] MEDS: CITRIC ACID/SODIUM CITRATE (BICITRA)15 ML UDC PO SCH ×4 (09:36→21:30)
[2019-09-27] MEDS: ATORVASTATIN 40 MG TABLET PO SCH (09:37)
[2019-09-27] MEDS: DUTASTERIDE (0.5 MG) 0.5 MG CAPSULE PO SCH (09:37)
[2019-09-27] MEDS: HYDROGEL DRESSING 90 GM TUBE TP SCH (09:38)
[2019-09-27] MEDS: Z GUARD REMEDY 2 OZ OINT TP SCH (09:39)
[2019-09-27] MEDS: THERAHONEY GEL 1.5 OZ TUBE TP SCH ×2 (09:39→21:33)
[2019-09-27] MEDS: APIXABAN 2.5 MG TABLET PO SCH ×2 (09:41→16:48)
--- NOTE | 2019-09-27 12:00 | NUR ---
PER MD'S ORDER, STRAIGHT CATH PATIENT Q6HRS. PT WAS STRAIGHT CATH AT THIS TIME WITH 1000CC CLEAR, YELLOW URING OUTPUT OUT. WILL CONTINUE TO MONITOR
[2019-09-27] MEDS: INSULIN REGULAR, HUMAN 100 UNIT/ML 3 ML VIAL SQ PRN ×3 (12:53→21:36)
[2019-09-27] MEDS: POTASSIUM CHLORIDE 10 MEQ TABLET.SA PO SCH ×2 (13:00→17:01)
[2019-09-27 16:00] VITALS: BP 108/88
--- NOTE | 2019-09-27 18:04 | NUR ---
STRAIGHT CATH PATIENT AT THIS TIME, 700CC CLEAR, YELLOW URINE OUTPUT OUT. WILL CONTINUE TO MONITOR
--- NOTE | 2019-09-27 19:12 | NUR ---
MS RN CLOSING NOTES PATIENT AWAKE IN BED. PT REMAINED STABLE THROUGHOUT SHIFT. PT KEPT CLEAN AND DRY. ALL CARE, WOUND TREATMENT AND MEDICATIONS ADMINISTERED ANTICIPATED PER ORDER. SAFETY PRECAUTIONS IN PLACE. BED IN LOWEST LOCKED POSITION, HOB ELEVATED, SIDE RAILS X2, CALL LIGHT WITHIN REACH. WILL ENDORSE TO REHABILITATION TECHNICIAN NURSE FOR SELVIN
[2019-09-27 20:00] VITALS: BP 111/50
--- NOTE | 2019-09-27 20:00 | NUR ---
MS/RN OPENING NOTE Patient awake in bed. A/O x2-3. Breathing even, unlabored. No SOB or acute distress. Patient denies pain. IV site 22g left hand, patent and intact. S/P wound debridement of sacrum and right heel ulcer. Photos taken and documented. Sacral wound measuring 7 cm x 11 cm. Bed in low position, wheels locked, side rails up x2, call light within reach.
--- NOTE | 2019-09-28 | NUR ---
MS/RN NOTE D/C IV right hand 20g, not patent, infiltrated. New IV to left hand 22g, patent and intact running D51/2NS @ 100 ml/hr. Will continue to monitor.
--- NOTE | 2019-09-28 | NUR ---
MS/RN NOTE Straight cath patient per order. Urine output 700 ml, clear, yellow, no sediment. Patient tolerated well. Will continue to monitor.
[2019-09-28] MEDS: IV D5/0.45 NACL 1,000 ML IV PRN ×3 (00:42→22:22)
--- NOTE | 2019-09-28 06:21 | NUR ---
MS/RN CLOSING NOTE Patient awake in bed. A/O x2-3. Breathing even, unlabored. No SOB or acute distress. Patient denies pain. IV site 22g left hand, patent and intact. S/P wound debridement of sacrum and right heel ulcer. Sacral wound measuring 7 cm x 11 cm. Straight catheter, total urine output for shift is 1200 ml, clear, yellow, no sediment. Two bowel movements this shift, large, brown, soft, semi-formed. Bed in low position, wheels locked, side rails up x2, call light within reach.
[2019-09-28] MEDS: BLOOD SUGAR DIAGNOSTIC 1 EACH STRIP IN SCH ×4 (06:55→21:53)
--- NOTE | 2019-09-28 07:30 | NUR ---
MS/RN OPENING NOTES Patient resting in bed, A&O x 2. No complaints of pain/discomfort noted. States "I want to be released, and go home." Breathing even and non-labored on RA, no SOB noted. No cardiac distress noted. IV access noted on L hand #22, patent and intact, and running D5 1/2 BS at 100 mL/hr. Sensation from all peripheral extremities intact. Fall precautions maintained. Will continue to monitor patient for any changes in condition. Addendum: 09/28/19 at 0927 by FORD CASTRO RN CORRECTION: On 2L oxygen via NC.
[2019-09-28 08:00] VITALS: BP 105/46
[2019-09-28] MEDS: CITRIC ACID/SODIUM CITRATE (BICITRA)15 ML UDC PO SCH ×4 (08:24→20:22)
[2019-09-28] MEDS: DUTASTERIDE (0.5 MG) 0.5 MG CAPSULE PO SCH (08:24)
[2019-09-28] MEDS: ALLOPURINOL 100 MG TABLET PO SCH (08:24)
[2019-09-28] MEDS: ATORVASTATIN 40 MG TABLET PO SCH (08:24)
[2019-09-28 08:42] LABS: CALCIUM, SERUM 7.8 mg/dL (8.5-10.1); CARBON DIOXIDE 13 mmol/L (21-32); CHLORIDE 110 mmol/L (98-107); CREATININE 3.5 mg/dL (0.6-1.3); GLUCOSE 161 mg/dL (74-106); POTASSIUM 3.2 mmol/L (3.5-5.1); SODIUM SERUM 140 mmol/L (136-145); UREA NITROGEN, BLOOD 78 mg/dL (7-18)
[2019-09-28] MEDS: METOPROLOL SUCCINATE 50 MG TAB.SR.24H PO SCH (08:44)
[2019-09-28] MEDS: APIXABAN 2.5 MG TABLET PO SCH ×2 (08:44→17:36)
[2019-09-28] MEDS: DAKINS QUARTER STRENGTH (0.125%) 480 ML BOTTLE TOP SCH (08:54)
[2019-09-28] MEDS: THERAHONEY GEL 1.5 OZ TUBE TP SCH ×2 (08:55→20:27)
[2019-09-28] MEDS: HYDROGEL DRESSING 90 GM TUBE TP SCH (08:55)
[2019-09-28] MEDS: Z GUARD REMEDY 2 OZ OINT TP SCH (08:55)
--- NOTE | 2019-09-28 10:00 | NUR ---
MS/RN NOTES Patient insists on having supplemental oxygen, on 2 L via NC. Placed orders.
[2019-09-28] MEDS ORDERED: POTASSIUM CHLORIDE 20 MEQ TAB.PRT.SR PO ONE (10:30)
--- NOTE | 2019-09-28 11:57 | NUR ---
MS/RN NOTES Straight cath done per MD order, 600 cc out, clear & yellow urine noted. Tolerated well, will continue to monitor.
[2019-09-28] MEDS: INSULIN REGULAR, HUMAN 100 UNIT/ML 3 ML VIAL SQ PRN ×2 (17:36→21:32)
--- NOTE | 2019-09-28 19:21 | NUR ---
MS/RN OPENING NOTES Patient resting in bed, A&O x 2. Breathing even and non-labored on RA, no SOB noted. No cardiac distress noted. IV access noted on L hand #22, patent and intact, and running D5 1/2 BS at 100 mL/hr. No pain/discomfort noted. Wound care done. Sensation from all peripheral extremities intact. Fall precautions maintained. Will endorse to bowling alley manager nurse.
--- NOTE | 2019-09-28 19:22 | NUR ---
CORRECTION: MS/RN CLOSING NOTES BELOW
--- NOTE | 2019-09-28 20:00 | NUR ---
MS/RN OPENING NOTE Patient awake in bed. Patient is A/O x2-3, very pleasant. Breathing even, unlabored. On room air satting at 100%. No signs of SOB or acute distress. Skin warm, pink, dry, appropriate for ethnicity. Ulceration on R heel noted. 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 Dressing clean, dry, intact. IV site left hand 22g running D51/2NS @ 100 ml/hr, no signs of redness or infiltration. Bed in low position, wheels locked, side rails up x2, call light within reach.
[2019-09-28 20:58] VITALS: BP 94/61
[2019-09-28] MEDS: LEVOFLOXACIN (250MG) 250 MG TABLET PO SCH (21:53)
--- NOTE | 2019-09-29 00:35 | NUR ---
MS/RN NOTE Straight cathetered patient per order. Urinary output 750 ml, clear, yellow, no sediment. Patient tolerated well. Will continue to monitor.
--- NOTE | 2019-09-29 06:00 | NUR ---
MS/RN NOTE Straight cathetered per order. Urinary output 300 ml, draining clear, yellow urine. Patient tolerated well. Will continue to monitor.
[2019-09-29] MEDS: BLOOD SUGAR DIAGNOSTIC 1 EACH STRIP IN SCH ×4 (06:40→21:22)
[2019-09-29] MEDS: INSULIN REGULAR, HUMAN 100 UNIT/ML 3 ML VIAL SQ PRN ×2 (06:47→21:21)
--- NOTE | 2019-09-29 06:57 | NUR ---
MS/RN CLOSING NOTE Patient awake in bed. A/O x2-3. Breathing even and unlabored. Patient denies pain. Skin warm, pink, dry, appropriate for ethnicity. 3 bowel movements this shift, large, brown, soft. Straight cathetered 1050 ml, clear, yellow, urine. Patient turned and repositioned. Bed in low position, wheels locked, side rails up x2, call light within reach. Will endorse to oncoming nurse,
--- NOTE | 2019-09-29 07:30 | NUR ---
RN Opening note Received patient in bed, OA x 2-3, able to responds all stimuli. Pt does no c/o pain or distress at time. Skin is warm to touch, keep clean/dry, intact IV site, provided reposition. Respiratory even and unlabored with oxygen at 2LPM via N/C. Keep bed in locked with elevated HOB for ensure airway and aspiration precaution. Call light within reach, will continue to monitor.
[2019-09-29 07:32] LABS: CALCIUM, SERUM 7.8 mg/dL (8.5-10.1); CARBON DIOXIDE 13 mmol/L (21-32); CHLORIDE 109 mmol/L (98-107); CREATININE 3.1 mg/dL (0.6-1.3); GLUCOSE 139 mg/dL (74-106); POTASSIUM 3.2 mmol/L (3.5-5.1); SODIUM SERUM 139 mmol/L (136-145); UREA NITROGEN, BLOOD 68 mg/dL (7-18)
[2019-09-29] MEDS ORDERED: POTASSIUM CHLORIDE 20 MEQ TAB.PRT.SR PO ONE (08:00)
[2019-09-29 08:24] VITALS: BP 114/50
[2019-09-29] MEDS: METOPROLOL SUCCINATE 50 MG TAB.SR.24H PO SCH (08:31)
[2019-09-29] MEDS: CITRIC ACID/SODIUM CITRATE (BICITRA)15 ML UDC PO SCH ×4 (08:32→21:21)
[2019-09-29] MEDS: ATORVASTATIN 40 MG TABLET PO SCH (08:32)
[2019-09-29] MEDS: ALLOPURINOL 100 MG TABLET PO SCH (08:32)
[2019-09-29] MEDS: APIXABAN 2.5 MG TABLET PO SCH ×2 (08:33→17:34)
[2019-09-29] MEDS: IV D5/0.45 NACL 1,000 ML IV PRN ×2 (08:37→17:56)
[2019-09-29] MEDS: Z GUARD REMEDY 2 OZ OINT TP SCH (08:37)
[2019-09-29] MEDS: DAKINS QUARTER STRENGTH (0.125%) 480 ML BOTTLE TOP SCH (08:39)
[2019-09-29] MEDS: HYDROGEL DRESSING 90 GM TUBE TP SCH (08:39)
[2019-09-29] MEDS: THERAHONEY GEL 1.5 OZ TUBE TP SCH ×2 (08:40→21:22)
[2019-09-29] MEDS: DUTASTERIDE (0.5 MG) 0.5 MG CAPSULE PO SCH (10:58)
[2019-09-29 15:47] VITALS: BP 126/43
[2019-09-29] MEDS ORDERED: LOPERAMIDE HCL (2 MG CAP) 2 MG CAPSULE PO PRN (18:30)
--- NOTE | 2019-09-29 18:30 | NUR ---
RN Closing note Patient in bed comfortably, does no appears pain or distress. Respiratory even and unlabored in room air. Skin is warm to touch, kept clean.dry, changed dressing on sacral as ordered direction, intact IV site running D51/2 NS at 100ml/hr and urine out put 1,200ml. Keep bed in locked with elevated HOB for aspiration precaution. Call light within reach, will endorse retail shift manager.
--- NOTE | 2019-09-29 19:15 | NUR ---
MS RN OPENING NOTES: RECEIVD PATIENT IN BED, AWAKE, A/O X3. NO SOB NOTED. NO COMPLAIN OF PAIN. HOB ELEVATED. CALL LIGHT WITHIN REACH. BED ALARM ON. BED IN LOWEST AND LOCKED POSITION.
[2019-09-29 20:00] VITALS: BP 108/61
[2019-09-30] VITALS (8 sets, daily range): BP systolic 90–138; BP diastolic 43–59
--- NOTE | 2019-09-30 00:23 | NUR ---
straight catheterization done, no urine output, patient said that no pressure on the lower abdomen. no distention noted.
--- NOTE | 2019-09-30 01:48 | NUR ---
BLADDER SCANNED= 601 ML URINE. PATIENT AGREED TO DO STRAIGHT CATHETER AGAIN, WILL REPOSITION THE PATIENT.
--- NOTE | 2019-09-30 02:17 | NUR ---
STRAIGHT CATH DONE, NO URINE CAME OUT. CHARGE NURSE AMBER TRIED, STILL NO OUTPUT. NO COMPLAIN OF PAIN.
--- NOTE | 2019-09-30 03:06 | NUR ---
STRAIGHT CATH DONE BY OIL FURNACE INSTALLERZACH SY= 800 ML URINE OUTPUT.
[2019-09-30] MEDS: IV D5/0.45 NACL 1,000 ML IV PRN (05:17)
--- NOTE | 2019-09-30 06:30 | NUR ---
MS RN CLOSING NOTES: PATIENT IN BED, AWAKE, A/O X4. NO COMPLAIN OF PAIN. NO SOB NOTED. CALL LIGHT WITHIN REACH.BED ALARM ON.BED HOB ELEVATED. WOUND TREATMENTS DONE TODAY: LEFT BUTTOCK- CLEANSE WITH NS, PAT DRIED,THERAHONEY APPLIED TO THE WOUND, Z-GUARD TO THE SURROUNDING TISSUE.AND COVERED WITH ABD PAD. OFFLOADED. TURNED [id number]. SACRUM: CLEANSED WITH NS, PAT DRIED.PACKED WITH DAKIN'S MOISTENED KERLIX AND COVERED WITH ABD PAD. RIGHT HIP/THIGH: CLEANSED WITH NS, PAT DRIED, HYDROGEL APPLIED TO THE WOUND BASE AND COVERED WITH MEPILEX DRESSING.
[2019-09-30] MEDS: BLOOD SUGAR DIAGNOSTIC 1 EACH STRIP IN SCH ×3 (06:57→17:21)
--- NOTE | 2019-09-30 06:58 | NUR ---
BLOOD SUGAR CHECKED= 106, NO INSULIN GIVEN.
--- NOTE | 2019-09-30 07:30 | NUR ---
RN MS REYNA NOTES PATIENT IS SLEEPING IN BED WITH NO SIGNS OF DISTRESS ON 3L NASAL CANNULA. IV ON THE RIGHT FA #22G RUNNING D5 1/2 NS AT 100 MLS/HR. BED IS IN LOW POSITION WITH SIDE RAILS UP X 2 FOR SAFETY. CALL LIGHT WITHIN REACH WILL CONTINUE TO MONITOR.
[2019-09-30] MEDS: ALLOPURINOL 100 MG TABLET PO SCH (08:27)
[2019-09-30] MEDS: ATORVASTATIN 40 MG TABLET PO SCH (08:27)
[2019-09-30] MEDS: CITRIC ACID/SODIUM CITRATE (BICITRA)15 ML UDC PO SCH ×3 (08:27→16:25)
[2019-09-30] MEDS: DUTASTERIDE (0.5 MG) 0.5 MG CAPSULE PO SCH (08:28)
[2019-09-30] MEDS: APIXABAN 2.5 MG TABLET PO SCH ×2 (08:29→16:26)
[2019-09-30] MEDS: DAKINS QUARTER STRENGTH (0.125%) 480 ML BOTTLE TOP SCH (08:34)
[2019-09-30] MEDS: HYDROGEL DRESSING 90 GM TUBE TP SCH (08:35)
[2019-09-30] MEDS: THERAHONEY GEL 1.5 OZ TUBE TP SCH (08:35)
[2019-09-30] MEDS: Z GUARD REMEDY 2 OZ OINT TP SCH (08:37)
[2019-09-30 08:38] LABS: CALCIUM, SERUM 7.5 mg/dL (8.5-10.1); CARBON DIOXIDE 13 mmol/L (21-32); CHLORIDE 109 mmol/L (98-107); CREATININE 2.8 mg/dL (0.6-1.3); GLUCOSE 123 mg/dL (74-106); SODIUM SERUM 138 mmol/L (136-145); UREA NITROGEN, BLOOD 60 mg/dL (7-18)
[2019-09-30] MEDS: METOPROLOL SUCCINATE 50 MG TAB.SR.24H PO SCH (08:39)
[2019-09-30 08:48] LABS: BASOPHILS % (AUTO) 0.2 % (0.0-2.0); LYMPHOCYTES # (AUTO) 0.9 /CMM (0.8-4.8); LYMPHOCYTES % (AUTO) 9.1 % (20.0-44.0); MEAN CORPUSCULAR HGB CONC 32 g/dl (31.0-36.0); MEAN CORPUSCULAR VOLUME 92 fL (80-96); MONOCYTES # (AUTO) 0.5 /CMM (0.1-1.30); MONOCYTES % (AUTO) 5.1 % (2.0-12.0); NEUTROPHILS # (AUTO) 8.1 /CMM (1.8-8.9); NEUTROPHILS % (AUTO) 82.6 % (43.0-81.0); PLATELET COUNT (AUTO) 263 /CMM (150-450); RED BLOOD CELL COUNT(AUTO) 2.12 MIL/uL (4.5-6.0); WHITE BLOOD COUNT (AUTO) 9.9 K/uL (4.3-11.0)
--- NOTE | 2019-09-30 08:50 | NUR ---
RECEIVED CRITICAL LAB VALUE OF HEMOGLOBIN 6.2. FROM RUBIA ASTRONAUTICAL ENGINEER. REPORT READ BACK. PAU RAY MADE AWARE. ORDERS RECEIVED TO TRANSFUSE 1 UNIT OF PRBC ORDER REPEATED BACK AND CARRIED OUT.
[2019-09-30 08:51] LABS: HEMATOCRIT 20 % (39-51)
[2019-09-30 08:52] LABS: HEMOGLOBIN 6.2 g/dL (13.5-17.5)
[2019-09-30] MEDS ORDERED: SILVER SULFADIAZINE 50 GM JAR TP SCH (09:00)
[2019-09-30] MEDS: POTASSIUM CHLORIDE 20 MEQ TAB.PRT.SR PO SCH ×2 (09:29→11:17)
--- NOTE | 2019-09-30 09:30 | NUR ---
PATIENT REFUSED STRAIGHT CATHETER. I EXPLAINED ABOUT THE RISKS OF NOT DOING STRAIGHT CATHETER, PATIENT IS AWARE AND STILL REFUSED.
[2019-09-30 10:19] LABS: BAND % (MANUAL) 1 % (0.0-5.0); EOSINOPHILS % (MANUAL) 2 % (0-4); LYMPHOCYTES % (MANUAL) 9 % (16-48); MONOCYTES % (MANUAL) 3 % (0-11.0); NEUTROPHILS % (MANUAL) 85 (42-76)
--- NOTE | 2019-09-30 11:50 | NUR ---
INITIAL VITALS BEFORE BLOOD TRANSFUSION BP 90/43 TEMP 97.5 HR 104 RR 18.
--- NOTE | 2019-09-30 12:12 | NUR ---
BLOOD TRANSFUSION CONSENT WAS SIGNED AND EDUCATED PATIENT ABOUT SIGNS OF SYMPTOMS OF ALLERGIC REACTIONS FOR ANY SOB, ITCHINESS AND BACK PAIN. PATIENT REPEATED BACK THE EDUCATION.
[2019-09-30] MEDS ORDERED: LEVO500T75 PO (12:27)
--- NOTE | 2019-09-30 12:27 | NUR ---
5 MINS AFTER BLOOD TRANSFUSION VITALS BP 104/57 TEMP 97.3 HR 112 RR 18.
[2019-09-30] MEDS: INSULIN REGULAR, HUMAN 100 UNIT/ML 3 ML VIAL SQ PRN (12:39)
--- NOTE | 2019-09-30 12:42 | NUR ---
15 MINS VITALS BP 104/57 TEMP 97.3 HR 112 RR 18 REPORTS NO SOB, NO ITCHINESS AND NO BACK PAIN. WILL CONTINUE TO MONITOR. Addendum: 09/30/19 at 1322 by AN ALVARADO RN 15 MINS VITALS BP 138/59 TEMP 97.7 HR 111 RR 18 REPORTS NO SOB, NO ITCHINESS AND NO BACK PAIN. WILL CONTINUE TO MONITOR.
--- NOTE | 2019-09-30 13:12 | NUR ---
30 MINS VITALS BP 136/59 TEMP 98.3 HR 111 RR 18 REPORTS NO SOB, NO ITCHINESS AND NO BACK PAIN. WILL CONTINUE TO MONITOR.
[2019-09-30 16:47] LABS: HEMOGLOBIN 7.5 g/dL (13.5-17.5)
--- NOTE | 2019-09-30 17:40 | NUR ---
DISCHARGE PATIENT VITALS ARE STABLE, WITH NO SIGNS OF DISTRESS ROOM AIR SPO2 100%. WITH STABLE H&H LAB VALUES. MD ROSLYN WAS INFORMED ABOUT UPDATED H&H AND GAVE THE ORDER TO DISCHARGE. PATIENT REPORTED NO PAIN AND NO HEADACHE. ALL SCHEDULED MEDICATIONS AND TREATMENTS WERE GIVEN APPROPRIATELY SCHEDULED. PATIENT DISCHARGE EDUCATION AND WOUND CARE FOLLOW UP WAS EXPLAINED TO THE PATIENT AND HE VERBALLY REPEATED THE TEACH BACK. IV ON THE R FA#22G WAS REMOVED SAFELY WITH NO SIGNS OF BLEEDING AND COVERED. HE WAS DISCHARGE TO THE [facility] VIA WHEEL CHAIR WITH SOLA HOWARD AND DISCHARGE EDUCATION AND FOLLOW UP CARE APPOINTMENT WAS ALSO GIVEN TO PATIENT'S CAREGIVER JAY. HE REPEATED BACK THE DISCHARGE INSTRUCTION. Addendum: 09/30/19 at 1804 by AN ALVARADO RN WOUND PICTURES WERE TAKEN FOR DISCHARGE.
== END 2019-09-30 17:45 | disposition home health service (06) | DRG 853 ==
LOC: ER 07:26 → TELE 09:54 → MED 15:42
PROVIDERS: ADMIT Nurse Practitioner Acute Care; ATTEND Nurse Practitioner Acute Care
PROC: 0KBP0ZZ Excision of Left Hip Muscle, Open Approach (ICD-10-PCS; principal; 2019-09-22)
PROC: 0KBN0ZZ Excision of Right Hip Muscle, Open Approach (ICD-10-PCS; 2019-09-22)
PROC: 0JBM0ZZ Excision of Left Upper Leg Subcutaneous Tissue and Fascia, Open Approach (ICD-10-PCS; 2019-09-22)
PROC: 0JBL0ZZ Excision of Right Upper Leg Subcutaneous Tissue and Fascia, Open Approach (ICD-10-PCS; 2019-09-22)
PROC: 0KBP0ZZ Excision of Left Hip Muscle, Open Approach (ICD-10-PCS; 2019-09-26)
PROC: 0KBN0ZZ Excision of Right Hip Muscle, Open Approach (ICD-10-PCS; 2019-09-26)
PROC: 0JBQ0ZZ Excision of Right Foot Subcutaneous Tissue and Fascia, Open Approach (ICD-10-PCS; 2019-09-29)
DX: A41.9 Sepsis, unspecified organism (principal); L89.154 Pressure ulcer of sacral region, stage 4; L89.324 Pressure ulcer of left buttock, stage 4; L89.314 Pressure ulcer of right buttock, stage 4; L89.224 Pressure ulcer of left hip, stage 4; L89.214 Pressure ulcer of right hip, stage 4; E43 Unspecified severe protein-calorie malnutrition; G93.41 Metabolic encephalopathy; N17.0 Acute kidney failure with tubular necrosis; R53.2 Functional quadriplegia; N39.0 Urinary tract infection, site not specified; D62 Acute posthemorrhagic anemia; I48.20 Chronic atrial fibrillation, unspecified; D68.59 Other primary thrombophilia; L97.419 Non-pressure chronic ulcer of right heel and midfoot with unspecified severity; N13.30 Unspecified hydronephrosis; E11.649 Type 2 diabetes mellitus with hypoglycemia without coma; I12.9 Hypertensive chronic kidney disease with stage 1 through stage 4 chronic kidney disease, or unspecified chronic kidney disease; N21.0 Calculus in bladder; N18.9 Chronic kidney disease, unspecified; G35 Multiple sclerosis; E78.5 Hyperlipidemia, unspecified; Z86.711 Personal history of pulmonary embolism; Z87.442 Personal history of urinary calculi; Z99.3 Dependence on wheelchair; Z83.3 Family history of diabetes mellitus; Z82.49 Family history of ischemic heart disease and other diseases of the circulatory system; Z79.01 Long term (current) use of anticoagulants; Z79.899 Other long term (current) drug therapy; Z79.4 Long term (current) use of insulin; N31.9 Neuromuscular dysfunction of bladder, unspecified; N40.0 Benign prostatic hyperplasia without lower urinary tract symptoms; E86.0 Dehydration; E11.621 Type 2 diabetes mellitus with foot ulcer; E11.51 Type 2 diabetes mellitus with diabetic peripheral angiopathy without gangrene; E11.22 Type 2 diabetes mellitus with diabetic chronic kidney disease; D63.8 Anemia in other chronic diseases classified elsewhere; Z74.09 Other reduced mobility; N13.9 Obstructive and reflux uropathy, unspecified; N13.70 Vesicoureteral-reflux, unspecified; Z98.890 Other specified postprocedural states; L98.9 Disorder of the skin and subcutaneous tissue, unspecified
CPT/HCPCS: 36415; 70450-TC; 71045-TC; 76770-TC; 80048-TC; 80076-TC; 81000-TC; 82962-TC; 83735-TC; 84100-TC; 84443-TC; 85025-TC; 85027-TC; 86850-TC; 86921-TC; 87081-TC; 93970-TC; A4216; A6248; A6253; A6403; G0378; J0696; J1815; J2185; J2543; J3490; J7030; J7040; J7042; J7050; J7060; P9016-BL